=== PATIENT | male | born 2000 | race Hispanic/Latino ===

== ENCOUNTER 2024-06-04 22:52 | Emergency (ER) | payer SELFPAY ==
[~2024-06-04] VITALS: Ht 170.2 cm; Wt 80.3 kg
[2024-06-05 01:28] LABS: BASOPHILS # (AUTO) 0.08 K/uL (0.00-0.20); BASOPHILS % (AUTO) 0.5 % (0.0-5.0); EOSINOPHILS # (AUTO) 0.05 K/uL (0.00-0.70); EOSINOPHILS % (AUTO) 0.3 % (0.0-8.0); IMMATURE GRANULOCYTE ABSOLUTE 0.07 K/uL (0-1); LYMPHOCYTES % (AUTO) 19.3 % (21.0-51.0); MEAN CORPUSCULAR HEMOGLOBIN 31.5 pg (27.0-33.0); MEAN CORPUSCULAR HGB CONC 34.6 g/dL (32.0-36.0); MEAN CORPUSCULAR VOLUME 91.3 fL (79-99); MONOCYTES # (AUTO) 1.5 K/uL (0.1-1.0); MONOCYTES % (AUTO) 9.3 % (3.0-13.0); NEUTROPHILS % (AUTO) 70.2 % (40.0-77.0); PLATELET COUNT (AUTO) 278 K/uL (130-400); RED BLOOD CELL COUNT(AUTO) 5.04 MIL/uL (4.50-6.20); RED CELL DISTRIBUTION WIDTH 11.6 % (11.0-15.5); WHITE BLOOD COUNT (AUTO) 15.7 K/uL (4.8-10.8)
[2024-06-05 01:41] LABS: CREATININE 1.2 mg/dL (0.5-1.3); POTASSIUM 4.1 mmol/L (3.5-5.1)
[2024-06-05] MEDS: 0.9%NACL 1000ML 1,000 ML IV ONE (02:10)
[2024-06-05] MEDS: ketOROlac 15MG/ML VIAL (15MG/ML) IV ONE (02:10)
[2024-06-05 02:25] LABS: AMPHET/METH SCREEN,URINE NEGATIVE (NEGATIVE); BARBITURATE SCREEN, URINE NEGATIVE (NEGATIVE); BENZODIAZEPINES SCREEN,URINE NEGATIVE (NEGATIVE); CANNABINOID SCREEN,URINE NEGATIVE (NEGATIVE); COCAINE SCREEN,URINE NEGATIVE (NEGATIVE); OPIATE SCREEN,URINE NEGATIVE (NEGATIVE); PHENCYCLIDINE SCREEN,URINE NEGATIVE (NEGATIVE)
[2024-06-05] MEDS ORDERED: IBUP-2070 PO (02:27)
[2024-06-05] MEDS ORDERED: COLC0.6T73 PO (02:27)
[2024-06-05 03:10] VITALS: BP 132/82; PULSE 88; RESP 16; TEMP 98.1; O2SAT 99
== END 2024-06-05 03:11 | disposition home or self-care (01) ==
LOC: EDH 22:52
DX: I31.9 Disease of pericardium, unspecified (principal); R00.2 Palpitations; R74.01 Elevation of levels of liver transaminase levels; Z88.0 Allergy status to penicillin
CPT/HCPCS: 99285; 82550; 84484; 80048; 80305; 85025; 36415; 93005 ×2; 96374; 71045; J7030; J1885